=== PATIENT | female | born 1980 | race Two or more races ===

== ENCOUNTER 2017-01-02 11:50 | Emergency (ER) | payer MEDICAID, OTHER ==
[~2017-01-02] VITALS: Ht 175.3 cm; Wt 108.4 kg
[2017-01-02 13:17] LABS: Basophils # (auto) 0 uL; Basophils % (auto) 0.3 % (0.0-2.0); Eosinophils # (auto) 0.1 uL; Eosinophils % (auto) 0.7 % (0.0-7.0); Hematocrit 41.1 % (36.0-46.0); Hemoglobin 14.1 g/dL (12.2-16.2); Lymphocytes # (auto) 1.9 uL; Lymphocytes % (auto) 20.9 % (10.0-50.0); Mean Corpuscular Hemoglobin 30.6 pg (28.0-32.0); Mean Corpuscular Hgb Conc. 34.4 g/dL (32.0-36.0); Mean Corpuscular Volume 88.8 fL (80.0-100.0); Mean Platelet Volume 9.3 fL (7.4-10.4); Monocytes # (auto) 0.6 uL; Monocytes % (auto) 6.8 % (0.0-12.0); Neutrophils # (auto) 6.4 uL; Neutrophils % (auto) 71.3 % (37.0-80.0); Platelet Count (auto) 299 10^3/uL (140-450); Red Cell Distribution Width 12.6 % (11.6-16.0)
[2017-01-02 13:41] LABS: Albumin 3.3 g/dL (3.4-5.0); Calcium 9.1 mg/dL (8.5-10.1); Magnesium 2.2 mg/dL (1.6-2.6)
[2017-01-02 13:44] LABS: Bilirubin, Total 0.5 mg/dL (0.2-1.0); Total Protein 8.4 g/dL (6.4-8.2)
[2017-01-02 17:59] LABS: Urine Bilirubin Negative (Negative); Urine Blood Negative /uL (Negative); Urine Color Yellow (Yellow); Urine Ketone Negative (Negative); Urine Mucus FEW (None Seen); Urine Nitrite Negative (Negative); Urine RBC 10 /hpf (0 - 4); Urine Squamous Epithelial Cell FEW /hpf (<5); Urine Urobilinogen Normal (Negative); Urine pH 5.5 (5.0-8.0)
[2017-01-02 18:01] LABS: Urine Glucose 4+ mg/dL (Normal)
[2017-01-02] MEDS ORDERED: InsuLIN REG 1unit/0.01ml Soln (100units/ml) IV ONE (18:30)
[2017-01-02] MEDS ORDERED: SODIUM CHLORIDE 0.9% 1,000 ML IV ONE (18:30)
[2017-01-02 20:15] VITALS: BP 123/71
== END 2017-01-02 20:31 | disposition home or self-care (01) ==
LOC: ER 12:10
DX: E11.65 Type 2 diabetes mellitus with hyperglycemia (principal); N39.0 Urinary tract infection, site not specified; Z91.14 Patient's other noncompliance with medication regimen
CPT/HCPCS: 36415; 80053; 81001; 81025; 82150; 82962; 83690; 83735; 85025; 96361; 96374; 99284; J1815; J7030

== ENCOUNTER 2024-02-12 15:46 | Emergency (ER) | payer MEDICAID, OTHER ==
[~2024-02-12] VITALS: Ht 175.3 cm; Wt 107.0 kg
[2024-02-12 16:12] LABS: Urine Bacteria None Seen /hpf (None Seen)
[2024-02-12 16:37] LABS: Urine Blood Negative /uL (Negative); Urine Clarity Clear (Clear); Urine Color Light-Yellow (Yellow); Urine Protein, UAD Negative (Negative); Urine Specific Gravity 1.046 (1.001-1.035); Urine Urobilinogen Normal (Negative); Urine WBC 12 /hpf (0 - 5); Urine pH 5.5 (5.0-9.0)
[2024-02-12 19:21] VITALS: BP 132/69; PULSE 78; RESP 16; TEMP 98; O2SAT 98
[2024-02-12] MEDS ORDERED: BACDST PO (20:31)
[2024-02-12] MEDS ORDERED: PRED20TA2 PO (20:31)
[2024-02-12] MEDS ORDERED: IBUP-1456 PO (20:31)
[2024-02-12] MEDS ORDERED: PRED10TA PO (20:36)
[2024-02-12] MEDS: cefTRIAXone SOD 1,000 MG VL IM ONE (20:37)
[2024-02-12] MEDS: KETOROLAC TROMETH 60MG/2ML VIAL IM ONE (20:38)
== END 2024-02-12 20:31 | disposition home or self-care (01) ==
LOC: ER 15:46
DX: N39.0 Urinary tract infection, site not specified (principal); L25.9 Unspecified contact dermatitis, unspecified cause; E11.9 Type 2 diabetes mellitus without complications; Z79.899 Other long term (current) drug therapy
CPT/HCPCS: 81001; 96372; 99284; J0696; J1885